=== PATIENT | female | born 1990 | race Caucasian/White ===

== ENCOUNTER → 2016-06-17 | Outpatient (CLI) | payer MEDICAID ==
[~2016-06-17] MED LIST: CITA20TA4 PO; FAMO1TAB37 PO; IBUP-232 PO; NAPR550T3 PO; OXYC1TAB63 PO; PREN1CAP17 PO; PREN29TA PO; RANI150T PO; SENN1TAB PO; SERT-132 PO; SIME80CH PO
--- NOTE | 2016-06-17 13:33 | PD.CONS ---
HPI Chief Complaint This patient is a previous 2 presenting for repeat tubal ligation consultation Date Seen: Jun 17, 2016 Travel History International Travel<30 Days: No Contact w/Intl Traveler<30Days: No History of Present Illness HPI This patient is a 25-year-old white female previous 2 and EDC of 07/16/16 36 weeks now presenting for repeat consultation as well as tubal ligation is having no complaints or problems at this time other than some few irregular contractions baby is active. No bleeding or rupture the membranes Para: 2 : 3 History Obstetric History Obstetric History 2 C-sections Family History Family History: Negative Social History Alcohol Use: No Tobacco Use: No Substance Abuse: No Allergies-Medications (Allergen,Severity, Reaction): Coded Allergies: No Known Allergies (Verified , 06/10/16) Home Meds Active Scripts W/O A W/ Fe Asparto G (Prenate Pixie 10-0.6-0.4-200 mg)1 Cap Cap1 Tab PO DAILY #30 BOTTLE Ref 11 Prov:Jenny Norris 05/30/16 Reported Medications Famotidine (Pepcid)20 Mg Tab10 Mg PO BID #60 TAB Ref 0 05/30/16 Vit-Iron Carbonyl ( Plus Iron 29-1 mg)1 Tab Tab1 Tab PO DAILY #30 TAB Ref 0 05/30/16 Review of Systems General / Constitutional: No: Fever, Weight Gain, Chills, Other Eyes: No: Diploplia, Blurred Vision, Visual changes, Pain, Photophobia HENT: No: Headaches, Vertigo, Lightheadedness Cardiovascular: No: Irregular Rhythm, Chest Pain or Discomfort, Palpitations, Tachycardia, Syncope, Varicosities, Edema, Cyanosis Respiratory: No: Cough, Short of Breath, Other Gastrointestinal: No: Nausea, Vomiting, Diarrhea Genitourinary: No: Decreased Urinary Output, Oliguria Musculoskeletal: No: Limited ROM, Weakness, Cramping, Edema, Pain Skin: No Rash, No Itching, No Dryness, No Lumps, No Change in Pigmentation, No Change in Nails, No Alopecia, No Lesions Neurologic: No: Weakness, Dizziness, Syncope, Focal Abnormalities, Coordination Problem, Headache, Slurred Speech, Seizures Psychiatric: No: Depression, Suicidal Ideations, Homicidal Ideation Endocrine: No: Heat Intolerance, Cold Intolerance, Polydipsia, Polyuria, Other Physical Exam Narrative GENERAL: Well-nourished, well-developed patient. SKIN: Warm and dry. HEAD: Normocephalic and atraumatic. EYES: No scleral icterus. No injection or drainage. ENT: No nasal drainage noted. Mucous membranes pink. Airway patent. NECK: Supple, trachea midline. No JVD. CARDIOVASCULAR: Regular rate and rhythm without murmurs, gallops, or rubs. RESPIRATORY: Breath sounds equal bilaterally. No accessory muscle use. BREASTS: Bilateral exam showed no masses , no retractions, no nipple discharge. ABDOMEN/GI: Abdomen soft, non-tender, bowel sounds present, no rebound, no guarding Gravid to [-36] weeks size Fundal Height: [-37] MDM Interpretation(s) This patient is a 25-year-old white female previous 2 now for repeat tubal ligation. She signed tubal papers several weeks ago. She has a copy of those with her. He is no clinical complaints or problems down baby is active. She requests a at 39 weeks. We'll proceed with repeat tubal ligation on 07/09/16 at 39 weeks Raj is explained to the patient at length's patient tubal ligation she knows permanent procedure. Less than 100% effective with a 1 in 300 failure rate, she understands that willing to take that risk Plan Plan schedule patient for section at the end of June as above, she is to report sooner if she has increasing pain bleeding or rupture the membranes. She currently cc check this and [facility] and records are available Diagnosis: previous C section Disposition: 01 DISCHARGE HOME Condition: Stable Abiel Lujan II, MD Jun 17, 2016 13:33
== END ==
LOC: ELAB 12:53
PROVIDERS: ATTEND Obstetrics & Gynecology Maternal & Fetal Medicine
DX: O34.219 Maternal care for unspecified type scar from previous cesarean delivery (principal)

== ENCOUNTER 2016-07-05 10:13 | Inpatient (IN) | payer MEDICAID ==
[~2016-07-05] VITALS: Ht 160 cm; Wt 104.3 kg
[~2016-07-05 10:13] MED LIST changes: -CITA20TA4 PO; -FAMO1TAB37 PO; -IBUP-232 PO; -NAPR550T3 PO; -OXYC1TAB63 PO; -SENN1TAB PO; -SERT-132 PO; -SIME80CH PO
[2016-07-09] VITALS (11 sets, daily range): BP systolic 93–133; BP diastolic 49–85; PULSE 60–106; RESP 18; TEMP 97.5–98.9; O2SAT 93–96
[2016-07-09] MEDS ORDERED: LACTATED RINGER'S 1000 ML INJ 1,000 ML IV ONE (07:18)
--- NOTE | 2016-07-09 07:20 | HHI.HP ---
HPI Chief Complaint Repeat Cxn with tubal ligation Date Seen: Jul 09, 2016 Travel History International Travel<30 Days: No Contact w/Intl Traveler<30Days: No History of Present Illness HPI 25 year old at 39-0/7 weeks gestation who presents today for repeat C- section and bilateral tubal ligation. She denies any vaginal bleeding or discharge. No gush or leaking of fluid. Positive movement. History Past Medical History Medical History: Denies Significant Hx Obstetric History Obstetric History s/p CXN x 2 Past Surgical History Narrative Surgical CXN x 2 Family History Family History: Negative Social History Alcohol Use: No Tobacco Use: Yes (05/20 ppd) Substance Abuse: No Allergies-Medications (Allergen,Severity, Reaction): Coded Allergies: No Known Allergies (Verified , 06/24/16) Home Meds Active Scripts Ranitidine 150 Mg [id number] Mg PO BID #60 TAB Ref 6 Prov:Jenny Norris 07/01/16 W/O A W/ Fe Asparto G (Prenate Pixie 10-0.6-0.4-200 mg)1 Cap Cap1 Tab PO DAILY #30 BOTTLE Ref 11 Prov:Jenny Norris 05/30/16 Reported Medications Vit-Iron Carbonyl ( Plus Iron 29-1 mg)1 Tab Tab1 Tab PO DAILY #30 TAB Ref 0 05/30/16 Review of Systems Except as stated in HPI: all other systems reviewed are Neg General / Constitutional: No: Fever, Chills Eyes: No: Visual changes HENT: No: Headaches Cardiovascular: No: Chest Pain or Discomfort, Palpitations Respiratory: No: Cough, Short of Breath Gastrointestinal: No: Nausea, Vomiting, Abdominal Pain Genitourinary: No: Dysuria, Pelvic Pain, Discharge, Vaginal Bleeding Musculoskeletal: No: Edema Psychiatric: No: Substance Abuse Physical Exam Narrative GENERAL: Well-nourished, well-developed patient. SKIN: Warm and dry. HEAD: Normocephalic and atraumatic. EYES: No scleral icterus. No injection or drainage. ENT: No nasal drainage noted. Mucous membranes pink. Airway patent. NECK: Supple, trachea midline. No JVD. CARDIOVASCULAR: Regular rate and rhythm without murmurs, gallops, or rubs. RESPIRATORY: Breath sounds equal bilaterally. No accessory muscle use. ABDOMEN/GI: Abdomen soft, non-tender, bowel sounds present, no rebound, no guarding Gravid to 39 weeks size GENITOURINARY: Presentation: vertex Membranes: intact6 Uterine Contractions: none FHT's: Category: I Baseline: 145 Reactive: + Variability: moderate Decels: none EXTREMITIES: No cyanosis or edema. BACK: Nontender without obvious deformity. No CVA tenderness. NEUROLOGICAL: Awake and alert. Motor and sensory grossly within normal limits. Normal speech. Data Data Vital Signs Reviewed: Yes Orders Admit To Inpatient (07/09/16 ) Code Status (07/09/16 07:18) Vital Signs (Adult) .ON ADMISSION (07/09/16 07:18) Activity Oob Ad Tona (07/09/16 07:18) ^ Heart (07/09/16 07:18) Urinary Catheter Management NITO.Q8H (07/09/16 07:18) ^ Preps (07/09/16 07:18) Scd / Daniel / Foot Pump NITO.QSHIFT (07/09/16 07:18) ^ Ultrasound For Locatio (07/09/16 07:18) Diet Npo (07/09/16 Breakfast) Lactated Ringer's 1000 Ml Inj (Lr 1000 M (07/09/16 07:18) Lactated Ringer's 1000 Ml Inj (Lr 1000 M (07/09/16 07:48) Cefazolin 2 Gm Premix (Ancef 2 Gm Premix (07/09/16 08:30) Citric Acid-Sodium Citrate Liq (Bicitra (07/09/16 09:00) Type And Screen (07/09/16 07:18) Complete Blood Count With Diff (07/09/16 07:18) Urinalysis - C+S If Indicated (07/09/16 07:18) Inpatient Certification (07/09/16 ) Specimen To Be Collected PRN (07/09/16 07:18) Assessment/Plan Assessment and Plan 25 year old at 39-0/7 weeks gestation. 1. IUP- Category I tracing, reassuring. Continue routine obstetric care. 2. Repeat CXN and tubal ligation. 3. Rh negative- s/p Rhogam on 10/16/15 4. GBS positive dw Anel Loza MD R2 Jul 09, 2016 07:19
[2016-07-09 07:39] LABS: AUTOMATED NEUTROPHIL # 6.1 TH/MM3 (1.8-7.7); BASOPHIL % 0.2 % (0.0-2.0); EOSINOPHIL # 0.1 TH/MM3 (0-0.4); EOSINOPHIL % 1.6 % (0.0-4.0); HEMATOCRIT 30.8 % (35.0-46.0); HEMO FLAGS DIFF FINAL; LYMPH % 23.3 % (9.0-44.0); LYMPHOCYTE # 2.1 TH/MM3 (1.0-4.8); MEAN CELL VOLUME 85.8 FL (80.0-100.0); MEAN CORPUSCULAR HEMOGLOBIN 29.8 PG (27.0-34.0); MEAN CORPUSCULAR HGB CONC 34.8 % (32.0-36.0); MONO % 8.3 % (0.0-8.0); NEUT % 66.6 % (16.0-70.0); PLATELET COUNT 308 TH/MM3 (150-450); RED BLOOD COUNT 3.59 MIL/MM3 (4.00-5.30); RED CELL DISTRIBUTION WIDTH 13.7 % (11.6-17.2); WHITE BLOOD COUNT 9.1 TH/MM3 (4.0-11.0)
[2016-07-09 07:46] LABS: BACTERIA, URINE MOD /hpf; BLOOD, URINE NEG (NEG); GLUCOSE,URINE NEG (NEG); KETONE, URINE NEG (NEG); NITRITE,URINE NEG (NEG); SQUAMOUS EPITHELIAL CELL URINE 36 /hpf (0-5); URINE COLOR YELLOW (YELLW/STRAW)
[2016-07-09 07:48] LABS: COMMENT (UR) CULTURE INDICATED; CULTURE IF INDICATED CULTURE INDICATED
[2016-07-09] MEDS ORDERED: LACTATED RINGER'S 1000 ML INJ 1,000 ML IV SCH ×2 (07:48→15:33)
[2016-07-09] MEDS ORDERED: OXYTOCIN 10 UNIT/ML AMP ONE (08:05)
[2016-07-09 08:22] LABS: AMPHETAMINE, URINE NEG (NEG); BARBITURATES, URINE NEG (NEG); COCAINE, URINE NEG (NEG)
[2016-07-09] MEDS ORDERED: ceFAZolin 2 GM PREMIX 50 ML IV SCH (08:30)
[2016-07-09] MEDS ORDERED: ceFAZolin INJ 1,000 MG VIAL ONE (08:37)
[2016-07-09] MEDS ORDERED: CITRIC ACID-SODIUM CITRATE LIQ 30 ML UDC PO SCH (09:00)
[2016-07-09] MEDS ORDERED: EPIDURAL-DO NOT ADMINISTER ANTICOAGULANTS XX PRN (09:05)
[2016-07-09] MEDS ORDERED: EPIDURAL-DIPHENHYDRAMINE HCL 50 MG/ML VIAL IV PUSH PRN (09:05)
[2016-07-09] MEDS ORDERED: EPIDURAL-NALOXONE HCL 0.4 MG/ML AMP IV PRN (09:05)
[2016-07-09] MEDS ORDERED: EPIDURAL-DIPHENHYDRAMINE HCL 50 MG CAP PO PRN (09:05)
[2016-07-09] MEDS ORDERED: EPIDURAL-NO SYSTEMIC NARCOTICS XX PRN (09:05)
[2016-07-09] MEDS ORDERED: ACETAMINOPHEN 1000 MG/100 ML VIAL IV ONE (10:17)
[2016-07-09] MEDS ORDERED: KETOROLAC TROMETHAMINE 30 MG/ML (IVP) VIAL ONE (10:17)
[2016-07-09] MEDS ORDERED: LACTATED RINGER'S 1,000 ML BAG IV ONE (10:30)
[2016-07-09] MEDS ORDERED: fentaNYL CITRATE 250 MCG/5 ML AMP ONE (10:38)
[2016-07-09] MEDS ORDERED: MIDAZOLAM HCL 2 MG/2 ML VIAL ONE (10:39)
[2016-07-09] MEDS ORDERED: ONDANSETRON HCL 4 MG/2 ML VIAL ONE (10:40)
[2016-07-09] MEDS ORDERED: MIDAZOLAM HCL 5 MG/5 ML VIAL ONE (10:40)
[2016-07-09] MEDS ORDERED: MORPHINE SULFATE PF 5 MG/10 ML VIAL ONE (10:40)
[2016-07-09] MEDS ORDERED: oxyCODONE/ACETAMINOPHEN 5 MG/325 MG TAB PO PRN (10:45)
[2016-07-09] MEDS ORDERED: OXYTOCIN 30 UNITS-500ML PREMIX 500 ML IV ONE (10:45)
[2016-07-09] MEDS ORDERED: SODIUM CHLORIDE 0.9% FLUSH 5 ML FLUSH IV PRN (10:45)
[2016-07-09] MEDS ORDERED: ONDANSETRON HCL 4 MG/2 ML VIAL IV PUSH PRN (10:45)
[2016-07-09] MEDS ORDERED: SIMETHICONE 80 MG CHEWABLE TAB PO PRN (10:45)
[2016-07-09] MEDS ORDERED: ACETAMINOPHEN 325 MG TAB PO PRN (10:45)
[2016-07-09] MEDS ORDERED: ZOLPIDEM TARTRATE 5 MG TAB PO PRN (10:45)
[2016-07-09] MEDS ORDERED: HYDROmorphone HCL PF 2 MG/ML VIAL ONE (11:26)
[2016-07-09] MEDS ORDERED: HYDROmorphone HCL PF 1 MG/ML VIAL IV PUSH ONE (13:00)
[2016-07-09] MEDS ORDERED: HYDROmorphone HCL PF 1 MG/ML VIAL IV PUSH PRN (13:00)
[2016-07-09] MEDS ORDERED: diphenhydrAMINE HCL 50 MG/ML VIAL IV PUSH PRN (13:15)
[2016-07-09] MEDS ORDERED: NALOXONE HCL 0.4 MG/ML AMP IV PRN (13:15)
[2016-07-09] MEDS ORDERED: diphenhydrAMINE HCL 25 MG CAP PO PRN (13:15)
[2016-07-09] MEDS: HYDROmorphone HCL PCA 6 MG/30 ML IV SCH ×2 (13:46→23:54)
[2016-07-09] MEDS ORDERED: PCA - TOTAL MG DILAUDID DELIVERED PER SHIFT SCH (14:00)
[2016-07-09] MEDS ORDERED: NICOTINE 14 MG/24 HR PATCH TD SCH (16:00)
[2016-07-09] MEDS: NICOTINE 21 MG/24 HR PATCH TD SCH (16:13)
[2016-07-09] MEDS ORDERED: LORazepam 0.5 MG TAB PO PRN (18:15)
[2016-07-09] MEDS ORDERED: OXYTOCIN 30 UNITS-500ML PREMIX 500 ML IV PRN (20:45)
[2016-07-09] MEDS: SODIUM CHLORIDE 0.9% FLUSH 5 ML FLUSH IV SCH (21:00)
--- NOTE | 2016-07-09 23:04 | MP ---
cc: MARY LUJAN MD DATE OF SURGERY 07/09/16 PREOPERATIVE DIAGNOSIS Previous caesarean section for repeat section at term and desires tubal ligation POSTOPERATIVE DIAGNOSIS Previous caesarean section for repeat section at term and desires tubal ligation PROCEDURE Low transverse caesarean section SURGEON Oneida Lujan MD CAFE MANAGER Dr. Wing, [facility] ANESTHESIA Spinal. INDICATION The patient is a 25 year old white female G4, P2 at 39 weeks with previous caesarean section times two for repeat section and tubal ligation. Tubal paper signed. She understands the facts about tubal. PROCEDURE IN DETAIL The patient was taken to the operating room, placed in supine position on the operating room table with adequate anesthesia administered. She was prepped and draped for surgery. A previous Pfannenstiel incision was excised out. The incision taken to the fascia sharply. The fascia dissected laterally and off the rectus muscle with Bovie cautery. Peritoneal cavity entered at that time and the incision extended superiorly and inferiorly and stretched open. The bladder blade was placed in the incision. The peritoneum reflected off the lower uterine segment and a transverse hysterotomy was made and extended bluntly bilaterally. Clear fluid noted. A male infant delivered in vertex presentation without difficulty. Apgars 8 and 9, weight 7 lbs, 3 oz. There were no complications. Cord blood obtained. The placenta manually extracted and . The uterus was exteriorized. The hysterotomy closed in a running layer 0 Chromic followed by imbricating sutures of same. Hemostasis was achieved and the tubal was then done. The left tube was isolated out and noted to be somewhat adhesed but we followed to the fimbriated end. Then a mid portion segment was excised out with suture passed through the mesosalpinx and the tube was tubed fore and aft and then remaining segment removed and sent to pathology. The same was done on the opposite side without difficulty. The uterus replaced in the peritoneal cavity. The rectus muscle reapproximated with stick ties of 0 Vicryl. The fascia then closed with running layer of 0 Vicryl. Subcutaneous tissue was reapproximated with running 0 plain gut suture and the skin closed with 3-0 Monocryl subcuticular stitch. Pressure dressing applied. Estimated blood loss 500 cc. There were no complications. Sponge, needle count correct times two. The patient was taken to recovery in stable condition. MD NICOLAS Joiner /10:43 AM /10:43 PM
[2016-07-09] MEDS ORDERED: ZOLPIDEM TARTRATE 10 MG TAB PO PRN (23:45)
[2016-07-09] MEDS: oxyCODONE/ACETAMINOPHEN 5 MG/325 MG TAB PO PRN (23:52)
[2016-07-10] MEDS: DOCUSATE SODIUM 50 MG/SENNA 8.6 MG TAB PO PRN ×2 (00:01→11:54)
[2016-07-10] MEDS: IBUPROFEN 600 MG TAB PO PRN ×3 (00:02→15:59)
[2016-07-10] MEDS: ALPRAZolam 0.5 MG TAB PO PRN ×3 (00:02→15:59)
[2016-07-10 02:05] VITALS: BP 114/73; PULSE 106; RESP 20; TEMP 98.9
[2016-07-10] MEDS: oxyCODONE/ACETAMINOPHEN 5 MG/325 MG TAB PO PRN ×5 (04:22→19:39)
[2016-07-10 06:05] LABS: AUTOMATED NEUTROPHIL # 10.5 TH/MM3 (1.8-7.7); BASOPHIL % 0.2 % (0.0-2.0); EOSINOPHIL # 0.1 TH/MM3 (0-0.4); EOSINOPHIL % 0.8 % (0.0-4.0); HEMO FLAGS DIFF FINAL; LYMPH % 12.2 % (9.0-44.0); LYMPHOCYTE # 1.6 TH/MM3 (1.0-4.8); MEAN CORPUSCULAR HEMOGLOBIN 29.9 PG (27.0-34.0); MEAN CORPUSCULAR HGB CONC 34.8 % (32.0-36.0); MONO % 5.9 % (0.0-8.0); NEUT % 80.9 % (16.0-70.0); PLATELET COUNT 271 TH/MM3 (150-450); RED CELL DISTRIBUTION WIDTH 13.8 % (11.6-17.2)
--- NOTE | 2016-07-10 07:21 | HHI.OB ---
Subjective Post Operative Day: 1 Remarks 25 YO , today is POD#1. She denies cramping, has had bowel movement. Appetite is good. Lochia is like a period, decreasing. No breast tenderness. She states she is not due to marijuana being found in her urine. She recalls having a significant anxiety attack overnight for which she needed Xanax; she does not offer trigger for attacks but requests more Xanax. She also has GERD and requests Zantac 75mg. States her pain is at incision site and is relieved with Percocet and ibuprofen. Is walking around. (Elsi Colbert MD R1) Objective Vitals/I&O Vital Signs Date Time Temp Pulse Resp B/P Pulse Ox O2 Delivery O2 Flow Rate FiO2 07/10/16 02:05 114/73 07/10/16 02:05 98.9 106 20 07/09/16 23:54 18 07/09/16 19:51 98.2 07/09/16 19:51 102 18 133/71 07/09/16 17:15 98.9 106 18 110/70 07/09/16 13:46 20 07/09/16 12:41 99/55 07/09/16 12:41 62 07/09/16 12:40 60 93/49 07/09/16 12:40 97.9 18 07/09/16 11:25 97.5 83 18 110/58 96 07/09/16 11:10 70 18 99/57 93 07/09/16 10:55 92 18 105/52 96 07/09/16 10:40 84 18 115/71 95 07/09/16 10:40 97.5 07/09/16 07:31 101 111/68 07/09/16 07:28 97 120/79 07/09/16 07:22 105 133/85 (Elsi Colbert MD R1) Result Diagram: 07/10/16 0516 Objective Remarks GENERAL: Well-nourished, well-developed female, sleeping on her side without pain. CARDIOVASCULAR: Regular rate and rhythm without murmurs, gallops, or rubs. RESPIRATORY: Breath sounds equal bilaterally. No accessory muscle use. ABDOMEN/GI: Abdomen soft, non-tender, bowel sounds present. Incision: Clean, dry and intact. Fundus: Firm, non-tender at umbilicus. GENITOURINARY: Light to moderate bleeding. EXTREMITIES: No cyanosis or edema, non-tender, without signs of DVT. Medications and IVs Current Medications Medications (Trade) Dose Ordered Sig/Collins Route Start Time Stop Time Status Last Admin (NS Flush) 2 ml BID IV 07/09/16 21:00 07/09/16 21:00 (NS Flush) 2 ml UNSCH PRN IV 07/09/16 10:45 07/10/16 01:05 (Mylicon Chew) 80 mg QID PRN PO 07/09/16 10:45 (Tylenol) 650 mg Q6H PRN PO 07/09/16 10:45 (Motrin) 600 mg Q6H PRN PO 07/09/16 10:45 07/10/16 00:02 (Percocet 5-325 Mg) 1 tab Q4H PRN PO 07/09/16 10:45 (Percocet 5-325 Mg) 2 tab Q4H PRN PO 07/09/16 10:45 07/10/16 04:22 (Jihan-Colace) 2 tab Q12H PRN PO 07/09/16 10:45 07/10/16 00:01 (M-M-R Ii Inj) 0.5 ml ONCE ONCE SQ 07/10/16 16:00 07/10/16 16:01 (Boostrix Inj) 0.5 ml ONCE ONCE IM 07/10/16 16:00 07/10/16 16:01 (Zofran Inj) 4 mg Q6H PRN IV PUSH 07/09/16 10:45 Miscellaneous Information NO SYSTEMIC NARCOTICS TO BE GIVEN FO... UNSCH PRN XX 07/09/16 09:05 07/10/16 09:04 (Narcan Inj) 0.4 mg UNSCH PRN IV 07/09/16 09:05 07/10/16 09:04 (Benadryl Inj) 25 mg Q6H PRN IV PUSH 07/09/16 09:05 07/10/16 09:04 (Benadryl) 50 mg Q6H PRN PO 07/09/16 09:05 07/10/16 09:04 Miscellaneous Information ALL NURSING DEPARTMENTS UNSCH PRN XX 07/09/16 09:05 07/10/16 09:04 (Benadryl) 25 mg Q6H PRN PO 07/09/16 13:15 (Benadryl Inj) 25 mg Q6H PRN IV PUSH 07/09/16 13:15 (Habitrol 21 Mg Patch.24 Hr) 1 patch DAILY TD 07/09/16 16:00 07/09/16 16:13 Miscellaneous Information 1 DAILY TD 07/10/16 09:00 (Ativan) 0.5 mg Q8H PRN PO 07/09/16 18:15 (Ambien) 10 mg HS PRN PO 07/09/16 23:45 (Xanax) 0.5 mg Q8H PRN PO 07/09/16 23:45 07/10/16 00:02 (Elsi Colbert MD R1) Assessment/Plan Problem List: (1) delivery delivered Assessment and Plan 25 year old at 39-0/7 weeks gestation. POD #1 from scheduled repeat CS and tubal ligation. 1. Routine post-operative care 2. Pain management with Percocet and ibuprofen 3. Rh negative- s/p Rhogam on 10/16/15 4. GBS positive 5. Smoker-given nicotine patch. not . 6. Contraception plans not yet discussed 7. Anxiety - requests Xanax, will consider PRN doses but will not schedule 8. GERD- per pt report, will order Zantac as requested 9. Anemia - post-op H/H 8.7/25.0; will evp general counsel on iron-rich diet and supplemented with Prenatals with iron dw Dr. Rojas Discharge Planning Likely discharge tomorrow (Elsi Colbert MD R1) Attending Attestation The exam, history, and the medical decision-making described in the above note were completed with the assistance of the resident provider. I reviewed and agree with the findings presented. I attest that I had a [id number] encounter with the patient on the same day, and personally performed and documented my assessment and findings in the medical record. (Javi Rojas MD) Elsi Colbert MD R1 Jul 10, 2016 07:21 Javi Rojas MD Jul 10, 2016 07:28
[2016-07-10] MEDS: NICOTINE 21 MG/24 HR PATCH TD SCH (07:59)
[2016-07-10 08:05] VITALS: BP 114/77; PULSE 101; RESP 20; TEMP 98.9
[2016-07-10] MEDS ORDERED: REMOVE OLD PATCH TD SCH (09:00)
[2016-07-10] MEDS: CALCIUM CARBONATE 500 MG CHEWABLE TAB CHEW PRN ×4 (10:00→21:48)
[2016-07-10] MEDS: FAMOTIDINE 20 MG TAB PO SCH ×2 (10:00→21:48)
[2016-07-10] MEDS ORDERED: DIPHTH/TETANUS/ACEL PERTUSSIS (BOOSTER) 0.5 ML VIAL/PFS IM ONE (16:00)
[2016-07-10] MEDS ORDERED: MEASLES, MUMPS, RUBELLA VACCINE 0.5 ML VIAL SQ ONE (16:00)
[2016-07-10 19:39] VITALS: BP 94/76; PULSE 103; RESP 18; TEMP 98
[2016-07-10] MEDS: SODIUM CHLORIDE 0.9% FLUSH 5 ML FLUSH IV SCH (20:34)
[2016-07-11] MEDS: CALCIUM CARBONATE 500 MG CHEWABLE TAB CHEW PRN ×3 (00:12→08:26)
[2016-07-11] MEDS: IBUPROFEN 600 MG TAB PO PRN ×2 (00:13→08:26)
[2016-07-11] MEDS: ALPRAZolam 0.5 MG TAB PO PRN ×2 (00:13→08:26)
[2016-07-11] MEDS: oxyCODONE/ACETAMINOPHEN 5 MG/325 MG TAB PO PRN ×3 (00:13→08:26)
[2016-07-11] MEDS ORDERED: OXYC1TAB63 PO (06:59)
[2016-07-11] MEDS ORDERED: SIME80CH PO (06:59)
[2016-07-11] MEDS ORDERED: IBUP-232 PO (06:59)
[2016-07-11] MEDS ORDERED: SENN1TAB PO (06:59)
--- NOTE | 2016-07-11 07:00 | HHI.DCPOC ---
Discharge Care Plan Diagnosis: (1) delivery delivered Goals to Promote Your Health * To prevent worsening of your condition and complications * To maintain your health at the optimal level Directions to Meet Your Goals Take your medications as prescribed Follow your dietary instruction Follow activity as directed Keep your appointments as scheduled Take your immunizations and boosters as scheduled If your symptoms worsen call your PCP, if no PCP go to Urgent Care Center or Emergency Room Smoking is Dangerous to Your Health. Avoid second hand smoke Call the 24-hour hour crisis hotline for domestic abuse at Sarkis Howard MD R2 Jul 11, 2016 07:00
--- NOTE | 2016-07-11 07:22 | HHI.OB ---
Subjective Post Operative Day: 2 Remarks 25 YO , today is POD#2. Has abdominal pain, worse when she is sedentary for long periods of time. Has had multiple BMs. Decreased lochia. No breast tenderness. Not . Taking Percocet and ibuprofen, states she has always had to come back for pain control when given only 30. She was prescribed famotidine for GERD, no complaints of heartburn today. Eating normal meals without issues. Patient will follow up with [facility] one week. ( Elsi Colbert MD R1) Objective Vitals/I&O Vital Signs Date Time Temp Pulse Resp B/P Pulse Ox O2 Delivery O2 Flow Rate FiO2 07/10/16 08:05 98.9 07/10/16 08:05 101 20 114/77 (Elsi Colbert MD R1) Result Diagram: 07/10/16 0516 Objective Remarks GENERAL: Well-nourished, well-developed female, sleeping on her side. CARDIOVASCULAR: Regular rate and rhythm without murmurs, gallops, or rubs. RESPIRATORY: Breath sounds equal bilaterally. No accessory muscle use. ABDOMEN/GI: Abdomen soft, non-tender, bowel sounds present. Incision: Clean, dry and intact. Steristrips across incision. Fundus: Firm, non-tender at umbilicus. GENITOURINARY: Light to moderate bleeding. EXTREMITIES: No cyanosis or edema, non-tender, without signs of DVT. Medications and IVs Current Medications Medications (Trade) Dose Ordered Sig/Collins Route Start Time Stop Time Status Last Admin (NS Flush) 2 ml BID IV 07/09/16 21:00 07/09/16 21:00 (NS Flush) 2 ml UNSCH PRN IV 07/09/16 10:45 07/10/16 01:05 (Mylicon Chew) 80 mg QID PRN PO 07/09/16 10:45 (Tylenol) 650 mg Q6H PRN PO 07/09/16 10:45 (Motrin) 600 mg Q6H PRN PO 07/09/16 10:45 07/11/16 00:13 (Percocet 5-325 Mg) 1 tab Q4H PRN PO 07/09/16 10:45 (Percocet 5-325 Mg) 2 tab Q4H PRN PO 07/09/16 10:45 07/11/16 04:22 (Jihan-Colace) 2 tab Q12H PRN PO 07/09/16 10:45 07/10/16 11:54 (Zofran Inj) 4 mg Q6H PRN IV PUSH 07/09/16 10:45 (Benadryl) 25 mg Q6H PRN PO 07/09/16 13:15 (Benadryl Inj) 25 mg Q6H PRN IV PUSH 07/09/16 13:15 (Habitrol 21 Mg Patch.24 Hr) 1 patch DAILY TD 07/09/16 16:00 07/10/16 07:59 Miscellaneous Information 1 DAILY TD 07/10/16 09:00 07/10/16 09:00 (Ativan) 0.5 mg Q8H PRN PO 07/09/16 18:15 (Ambien) 10 mg HS PRN PO 07/09/16 23:45 (Xanax) 0.5 mg Q8H PRN PO 07/09/16 23:45 07/11/16 00:13 (Pepcid) 10 mg BID PO 07/10/16 08:00 07/10/16 21:48 (Tums Chew) 500 mg Q2H PRN CHEW 07/10/16 09:15 07/11/16 04:22 (Elsi Colbert MD R1) Assessment/Plan Problem List: (1) delivery delivered Assessment and Plan 25 year old at 39-0/7 weeks gestation. POD #2 from scheduled repeat CS and tubal ligation. Stable for discharge. 1. Routine post-operative care 2. Pain management with Percocet and ibuprofen 3. Rh negative- s/p Rhogam on 10/16/15 4. GBS positive 5. Smoker-given nicotine patch. not . 6. BTL intra-operatively 7. Anxiety - requests Xanax, will consider PRN doses but will not schedule 8. GERD- per report, on famotidine 9. Anemia - post-op H/H 8.7/25.0; will prison classification counselor on iron-rich diet and supplemented with Prenatals with iron dw OB Hospitalist, sdw Dr. Sarkis Howard Discharge Planning Discharge today (Elsi Colbert MD R1) Attestation Discussed patient with resident and agree with discharge instructions (Nga Reyes MD) Elsi Colbert MD R1 Jul 11, 2016 07:22 Nga Reyes MD Jul 11, 2016 08:19
[2016-07-11 08:05] VITALS: BP 121/67; PULSE 93; RESP 16; TEMP 97.9
[2016-07-11] MEDS: FAMOTIDINE 20 MG TAB PO SCH (08:26)
[2016-07-11] MEDS: NICOTINE 21 MG/24 HR PATCH TD SCH (08:26)
[2016-07-12 12:52] LABS: BATH SALTS (MDPV) UR NEG (NEG); ECSTASY (MDMA) UR NEG (NEG); HEROIN (6-ACETYLMORPHINE) UR NEG (NEG); K2 SPICE UR NEG (NEG); OBMETHADONE UR NEG (NEG); OXYCODONE (PERCODAN) NEG (NEG); PHENCYCLIDINE URINE NEG (NEG)
[2016-07-16] MEDS ORDERED: IBUP-232 PO (14:09)
[2016-07-16] MEDS ORDERED: CITA20TA4 PO (14:09)
[2016-08-26] MEDS ORDERED: SENN1TAB PO (14:56)
[2016-08-26] MEDS ORDERED: SERT-132 PO (15:00)
[2016-08-26] MEDS ORDERED: NAPR550T3 PO (15:00)
== END 2016-07-11 10:18 | disposition home or self-care (01) | DRG 766 ==
LOC: H2EB 07-09 07:07 → H1EA 07-09 11:39
PROVIDERS: ADMIT Obstetrics & Gynecology Maternal & Fetal Medicine; ATTEND Obstetrics & Gynecology Maternal & Fetal Medicine
PROC: 10D00Z1 Extraction of Products of Conception, Low, Open Approach (ICD-10-PCS; principal; 2016-07-09)
PROC: 0UL70ZZ Occlusion of Bilateral Fallopian Tubes, Open Approach (ICD-10-PCS; 2016-07-09)
DX: O34.211 Maternal care for low transverse scar from previous cesarean delivery (principal); D50.9 Iron deficiency anemia, unspecified; Z3A.39 39 weeks gestation of pregnancy; Z37.0 Single live birth; O99.334 Smoking (tobacco) complicating childbirth; Z30.2 Encounter for sterilization; O99.344 Other mental disorders complicating childbirth; F41.9 Anxiety disorder, unspecified; O99.02 Anemia complicating childbirth; O99.824 Streptococcus B carrier state complicating childbirth; O99.62 Diseases of the digestive system complicating childbirth; K21.9 Gastro-esophageal reflux disease without esophagitis
CPT/HCPCS: 80307; 81001; 85025; 86850; 86900; 86901; 87086; 88302; G0481; J0131; J0690; J1170; J1885; J2250; J2274; J2405; J2590; J3010; J7120